=== PATIENT | female | born 1930 | race Caucasian/White ===

== ENCOUNTER 2016-04-10 14:53 | Outpatient (CLI) | payer MEDICARE ==
[2016-04-10 18:12] LABS: Microalbumin Urine 1.3 mg/dL (0.5-50.0)
[2016-04-10 22:04] LABS: Bilirubin Negative (Negative); Blood, Urine Trace (Negative); Glucose, Urine (Dipstick) 250 mg/dL (Negative); Ketone, Urine Negative (Negative); Nitrite Positive (Negative); Protein, Urine (Dipstick) Negative (Neg-Trace); Urobilinogen 0.2 mg/dL (0.2-1.0)
[2016-04-10 22:20] LABS: Bacteria/HPF 3+ HPF (None Seen); RBC/HPF 0-3 HPF (0-3); Squamous Epithelial 0-3 HPF (0-3)
== END 2016-04-10 14:54 ==
LOC: HPCALD 14:53
PROVIDERS: ATTEND Family Medicine
DX: E11.9 Type 2 diabetes mellitus without complications (principal); R30.0 Dysuria
CPT/HCPCS: 81001; 82043; 82570; 87086

== ENCOUNTER 2016-09-17 10:14 | Outpatient (CLI) | payer MEDICARE ==
[2016-09-17 12:08] LABS: ALT (SGPT) 16 U/L (8-55); AST (SGOT) 17 U/L (5-34); Albumin 3.9 g/dL (3.4-4.8); Alkaline Phosphatase 108 U/L (40-150); Anion Gap 12 mmol/L (10-20); BUN (Urea Nitrogen) 18 mg/dL (9.8-20.1); Bilirubin, Direct 0.2 mg/dL (0.1-0.3); Bilirubin, Total 0.5 mg/dL (0.2-1.2); Calc. Creatinine Clearance 0 mL/min (70-130); Calcium 9.2 mg/dL (7.8-10.44); Carbon Dioxide 26 mmol/L (23-31); Cardiac Risk 4.2 (Less than 4.5); Chloride 105 mmol/L (98-107); Cholesterol 192 mg/dl (< 200 Desired); Estimated GFR-MDRD 63; Glucose 181 mg/dL (83-110); HDL Cholesterol 46 mg/dL (>60 Neg Risk); LDL Cholesterol, Calculated 129 mg/dL; Potassium 4.2 mmol/L (3.5-5.1); Protein, Total 7.2 g/dL (6.0-8.3); Sodium 139 mmol/L (136-145); Triglycerides 83 mg/dL (Less than 150)
== END 2016-09-17 10:15 | disposition home or self-care (01) ==
LOC: BURLAB 10:14
PROVIDERS: ATTEND Internal Medicine Cardiovascular Disease
DX: E11.9 Type 2 diabetes mellitus without complications (principal); E78.2 Mixed hyperlipidemia; I10 Essential (primary) hypertension
CPT/HCPCS: 36415; 80048; 80061; 80076

== ENCOUNTER 2019-02-13 14:07 | Emergency (ER) | payer MEDICARE ==
[2019-02-13 15:30] LABS: #Lymphocytes 1.4 thou/uL (1.20-3.40); #Monocytes 0.5 thou/uL (0.11-0.59); #Neutrophils 6.9 thou/uL (1.40-6.50); %Basophils 0.5 % (0.0-1.0); %Monocytes 5.6 % (0.0-10.0); %Neutrophils 77.9 % (42.0-75.0); Hemoglobin 13.2 g/dL (12.0-16.0); Mean Corpuscular HGB CONC 32.3 g/dL (32.0-36.0); Mean Corpuscular Hemoglobin 29.1 pg (27.0-31.0); Mean Corpuscular Volume 90.2 fL (78.0-98.0); Mean Platelet Volume 7.8 fL (7.4-10.4); Platelet Count 250 thou/uL (130-400); RBC Distribution Width 12.8 % (11.5-14.5); Red Blood Cell (RBC) Count 4.51 mill/uL (4.20-5.40); White Blood Cell (WBC) Count 8.9 thou/uL (4.8-10.8)
[2019-02-13 15:36] LABS: INR-International Normal Ratio 1.1; Prothrombin Time 13.7 SEC (12.0-14.7)
[2019-02-13 15:45] LABS: ALT (SGPT) 11 U/L (8-55); AST (SGOT) 10 U/L (5-34); Albumin 3.9 g/dL (3.4-4.8); Alkaline Phosphatase 109 U/L (40-110); Anion Gap 14 mmol/L (10-20); BUN (Urea Nitrogen) 16 mg/dL (9.8-20.1); Bilirubin, Total 0.4 mg/dL (0.2-1.2); Calc. Creatinine Clearance 0 mL/min (70-130); Calcium 9.3 mg/dL (7.8-10.44); Carbon Dioxide 25 mmol/L (23-31); Chloride 100 mmol/L (98-107); Estimated GFR-MDRD 52; Globulin 2.7 g/dL (2.4-3.5); Glucose 425 mg/dL (83-110); Potassium 4.2 mmol/L (3.5-5.1); Protein, Total 6.6 g/dL (6.0-8.3); Sodium 135 mmol/L (136-145)
[2019-02-13] MEDS ORDERED: Lidocaine 1% w/Epinephrine 1:100K 30 ML VIAL ONE (16:07)
--- NOTE | 2019-02-13 22:06 | CT ---
CT BRAIN WITHOUT CONTRAST: Date: 02-13-19 FINDINGS: The ventricles are normal in size for age and atrophy. Some mild periventricular/deep white matter elliot cency is typical of the chronic microvascular ischemic change. There is no sign of intracranial bleed ing, acute stroke or mass. No edema was seen. The skull appears intact. The visible paranasal sinuses and mastoid air cells are clear. IMPRESSION: Chronic changes but no acute intracranial finding. Preliminary report called to Chrissy in ER at [id number] on 02-13-19. POS: HOME
--- NOTE | 2019-02-13 22:10 | CT ---
CT CERVICAL SPINE: Date: 02-13-[address] of the cervical spine was done following trauma. Axial slices were acquired followed by cor onal and sagittal reconstructions. FINDINGS: No fracture, dislocation, or acute bony change was seen at any cervical level. The C1-2 dens distance is normal and the soft tissues are normal in thickness. Findings by level follow: C1-2: No acute findings. C2-3: No acute findings. C3-4: Prominent facet arthritis bilaterally, especially on the right side with severe right foraminal narrowing. C4-5: Prominent left facet arthritis. Mild to moderate right foraminal narrowing. C5-6: There is minimal anterolisthesis of C5 on C6 which appears to be due to facet changes which are very prominent at this level. Mild foraminal narrowing is seen bilaterally at this level. C6-7: No acute findings. C7-T1: No acute findings. T1-2: No acute findings. T2-3: No acute findings. The lung apices are clear. There is a suggestion of a calcification in the left submandibular glands. IMPRESSION: Multiple degenerative changes but no acute traumatic findings. POS: HOME
== END 2019-02-13 16:22 | disposition home or self-care (01) ==
LOC: BURERS 14:07
DX: S01.01XA Laceration without foreign body of scalp, initial encounter (principal); I10 Essential (primary) hypertension; E11.9 Type 2 diabetes mellitus without complications; I25.2 Old myocardial infarction; Z79.4 Long term (current) use of insulin; Z79.899 Other long term (current) drug therapy; W01.10XA Fall on same level from slipping, tripping and stumbling with subsequent striking against unspecified object, initial encounter
CPT/HCPCS: 12001; 36415; 70450; 72125; 80053; 85025; 85610; J2001

== ENCOUNTER 2019-03-05 12:36 | Emergency (ER) | payer MEDICARE ==
[2019-03-05 13:22] LABS: #Basophils 0.1 thou/uL (0.0-0.2); #Lymphocytes 0.9 thou/uL (1.20-3.40); #Monocytes 0.8 thou/uL (0.11-0.59); #Neutrophils 8.6 thou/uL (1.40-6.50); %Basophils 0.7 % (0.0-1.0); %Eosinophils 0.4 % (0.0-10.0); %Lymphocytes 8.7 % (21.0-51.0); %Monocytes 7.8 % (0.0-10.0); %Neutrophils 82.4 % (42.0-75.0); Hemoglobin 16.2 g/dL (12.0-16.0); Mean Corpuscular HGB CONC 32.3 g/dL (32.0-36.0); Mean Corpuscular Volume 89.6 fL (78.0-98.0); Mean Platelet Volume 8.7 fL (7.4-10.4); Platelet Count 213 thou/uL (130-400); RBC Distribution Width 12.6 % (11.5-14.5); Red Blood Cell (RBC) Count 5.58 mill/uL (4.20-5.40); White Blood Cell (WBC) Count 10.4 thou/uL (4.8-10.8)
[2019-03-05] MEDS ORDERED: Fentanyl 100 MCG/2 ML VIAL ONE (13:28)
[2019-03-05 13:39] LABS: ALT (SGPT) 15 U/L (8-55); AST (SGOT) 13 U/L (5-34); Albumin 3.8 g/dL (3.4-4.8); Alkaline Phosphatase 114 U/L (40-110); Anion Gap 20 mmol/L (10-20); BUN (Urea Nitrogen) 21 mg/dL (9.8-20.1); Bilirubin, Total 1.5 mg/dL (0.2-1.2); CK (CPK) 12 U/L (29-168); Calc. Creatinine Clearance 0 mL/min (70-130); Calcium 9.8 mg/dL (7.8-10.44); Carbon Dioxide 17 mmol/L (23-31); Chloride 97 mmol/L (98-107); Estimated GFR-MDRD 62; Globulin 3.2 g/dL (2.4-3.5); Glucose 303 mg/dL (83-110); Potassium 4.2 mmol/L (3.5-5.1); Sodium 130 mmol/L (136-145)
[2019-03-05] MEDS ORDERED: Insulin Regular 300 UNITS/3 ML VIAL ONE (13:48)
[2019-03-05] MEDS ORDERED: Iopamidol 370 76% 100 ML VIAL ONE (13:53)
--- NOTE | 2019-03-05 14:36 | CT ---
EXAM: 1. CT of the chest with contrast 2. CT of the abdomen and pelvis with contrast 3. Limited CT of the thoracic and lumbosacral spine with contrast HISTORY: Fall on 03/02/2019 with chest pain, abdominal pain, and back pain. COMPARISON: None TECHNIQUE: 1. Multiple contiguous axial images were obtained in a CT the chest with contrast. Coronal reformats were performed. 2. Multiple contiguous axial images were obtained in a CT of the abdomen and pelvis with contrast. Co isael reformats were performed. 3. Limited CTs of the thoracic and lumbosacral spines were performed with contrast. Sagittal and tyrese nal re-reformats were created based off images obtained in the chest, abdomen, and pelvic CTs. FINDINGS: CT CHEST: Mediastinum: Heart is normal in size without focal cardiac abnormality. Calcifications in the coronar y arteries. No hilar or mediastinal lymphadenopathy. No mediastinal hemorrhage. Lungs: Calcified granuloma in the lingula. No focal infiltrates or suspicious nodules. Pleural space: No pneumothorax or pleural effusion. Thoracic bones: There are healing left rib fractures. No acute rib fractures are appreciated. Thoracic chest wall: Unremarkable. CT ABDOMEN/PELVIS: Peritoneum: No free air or free fluid, or stranding changes. Liver: Unremarkable. Gallbladder: Removed Adrenal glands: Unremarkable. Kidneys: Unremarkable. Spleen: Unremarkable. Pancreas: Unremarkable. Bowel: Scattered diverticula in the colon. Normal small bowel. Retroperitoneum: No lymphadenopathy. Atherosclerotic calcifications in the aorta. Pelvis: No focal mass or abnormality. Status post hysterectomy. Pelvic bones: Left hip prosthesis produces streak artifact. LIMITED CT OF THE THORACIC AND LUMBOSACRAL SPINE: There is a T11 compression fracture with approximately 10% height loss. The other vertebral bodies de monstrate normal height without evidence of fracture. No subluxation is seen. No prevertebral soft tissue swelling are present. IMPRESSION: 1. No evidence of acute intrathoracic abnormality 2. No evidence of acute intra-abdominal or pelvic abnormality 3. T11 compression fracture
[2019-03-05 15:16] LABS: Bilirubin Small (Negative); Blood, Urine Negative (Negative); Clarity Clear (Clear); Glucose, Urine (Dipstick) 500 mg/dL (Negative); Leukocyte Negative (Negative); Nitrite Negative (Negative); Protein, Urine (Dipstick) Negative (Neg-Trace); Urobilinogen 0.2 mg/dL (Less than 2)
[2019-03-05] MEDS ORDERED: Acetaminophen/Codeine 30-300mg Tablet ONE (15:23)
[2019-03-05 16:41] LABS: Anion Gap 14 mmol/L (10-20)
[2019-03-05 16:43] LABS: BUN (Urea Nitrogen) 17 mg/dL (9.8-20.1); Calc. Creatinine Clearance 0 mL/min (70-130); Calcium 7.9 mg/dL (7.8-10.44); Carbon Dioxide 19 mmol/L (23-31); Chloride 105 mmol/L (98-107); Estimated GFR-MDRD 77; Glucose 129 mg/dL (83-110); Potassium 3.8 mmol/L (3.5-5.1); Sodium 134 mmol/L (136-145)
== END 2019-03-05 17:11 | disposition home or self-care (01) ==
LOC: BURERS 12:36
DX: S22.089A Unspecified fracture of T11-T12 vertebra, initial encounter for closed fracture (principal); E11.65 Type 2 diabetes mellitus with hyperglycemia; E86.0 Dehydration; I25.2 Old myocardial infarction; I10 Essential (primary) hypertension; Z79.899 Other long term (current) drug therapy; Z79.4 Long term (current) use of insulin
CPT/HCPCS: 36415; 71260; 74177; 80053; 81003; 82550; 83605; 83880; 84484; 85025; 87086; 93005; 96361; 96374; 96375; J1815; J3010; Q9967

== ENCOUNTER 2020-11-08 | Emergency (ER) | payer MEDICARE | END 2020-11-08 18:45 | disposition home or self-care (01) | DX: S02.2XXA Fracture of nasal bones, initial encounter for closed fracture (principal); S01.21XA Laceration without foreign body of nose, initial encounter; I25.2 Old myocardial infarction; I10 Essential (primary) hypertension; E11.9 Type 2 diabetes mellitus without complications; W19.XXXA Unspecified fall, initial encounter ==